=== PATIENT | female | born 1960 | race Two or more races ===

== ENCOUNTER → 2023-09-10 | Outpatient (CLI) | payer MEDICARE, MEDICAID ==
[~2023-09-10] MED LIST: COLA100C5 PO; FERR325T3 PO; LIDO30CR18 TOP; METO25TA4 PO; ONDA-84 PO; OXYC-517 PO; PANT40TA29 PO; PROC10TA5 PO
== END ==
LOC: M ONCM 07:33
PROVIDERS: ATTEND Dietitian, Registered
DX: C56.3 Malignant neoplasm of bilateral ovaries (principal); Z71.3 Dietary counseling and surveillance; Z92.21 Personal history of antineoplastic chemotherapy; Z68.1 Body mass index [BMI] 19.9 or less, adult

== ENCOUNTER → 2023-10-01 | Outpatient (CLI) | payer MEDICARE, MEDICAID ==
[~2023-10-01] VITALS: Ht 154.9 cm; Wt 37.1 kg
[~2023-10-01] MED LIST changes: +ATIV1TAB10 PO; +DEXA4TA PO; +SENN-186 PO; +ZYRTTAB8 PO
[2023-10-01 10:21] VITALS: BP 186/84; O2SAT 98
== END ==
LOC: M PAL 10:08
PROVIDERS: ATTEND Nurse Practitioner Adult Health
DX: G89.3 Neoplasm related pain (acute) (chronic) (principal); R10.13 Epigastric pain; R10.30 Lower abdominal pain, unspecified; R91.8 Other nonspecific abnormal finding of lung field; K21.9 Gastro-esophageal reflux disease without esophagitis; H00.026 Hordeolum internum left eye, unspecified eyelid; R64 Cachexia; R10.11 Right upper quadrant pain; R59.0 Localized enlarged lymph nodes; C56.3 Malignant neoplasm of bilateral ovaries; C78.6 Secondary malignant neoplasm of retroperitoneum and peritoneum; R18.0 Malignant ascites; R63.0 Anorexia; K59.00 Constipation, unspecified; Z51.5 Encounter for palliative care; F17.210 Nicotine dependence, cigarettes, uncomplicated; Z66 Do not resuscitate; Z79.52 Long term (current) use of systemic steroids; Z79.891 Long term (current) use of opiate analgesic; Z79.899 Other long term (current) drug therapy; Z80.0 Family history of malignant neoplasm of digestive organs; Z80.3 Family history of malignant neoplasm of breast; Z80.8 Family history of malignant neoplasm of other organs or systems; Z88.0 Allergy status to penicillin; Z88.1 Allergy status to other antibiotic agents; Z90.49 Acquired absence of other specified parts of digestive tract; Z90.710 Acquired absence of both cervix and uterus; Z90.722 Acquired absence of ovaries, bilateral; Z90.79 Acquired absence of other genital organ(s); Z92.21 Personal history of antineoplastic chemotherapy

== ENCOUNTER → 2023-10-15 | Outpatient (CLI) | payer MEDICARE, MEDICAID ==
[~2023-10-15] VITALS: Ht 154.9 cm; Wt 37.5 kg
[~2023-10-15] MED LIST changes: +CETI10CA2 PO
[2023-10-15 15:10] VITALS: BP 179/82; O2SAT 98
== END ==
LOC: M PAL 14:54
PROVIDERS: ATTEND Nurse Practitioner Adult Health
DX: G89.3 Neoplasm related pain (acute) (chronic) (principal); R10.13 Epigastric pain; R10.30 Lower abdominal pain, unspecified; R10.11 Right upper quadrant pain; R91.8 Other nonspecific abnormal finding of lung field; K21.9 Gastro-esophageal reflux disease without esophagitis; J43.9 Emphysema, unspecified; R64 Cachexia; R59.0 Localized enlarged lymph nodes; R91.1 Solitary pulmonary nodule; C56.3 Malignant neoplasm of bilateral ovaries; C78.6 Secondary malignant neoplasm of retroperitoneum and peritoneum; R18.0 Malignant ascites; R63.0 Anorexia; K59.00 Constipation, unspecified; Z51.5 Encounter for palliative care; F17.210 Nicotine dependence, cigarettes, uncomplicated; Z66 Do not resuscitate; Z79.52 Long term (current) use of systemic steroids; Z79.891 Long term (current) use of opiate analgesic; Z79.899 Other long term (current) drug therapy; Z80.0 Family history of malignant neoplasm of digestive organs; Z80.3 Family history of malignant neoplasm of breast; Z80.8 Family history of malignant neoplasm of other organs or systems; Z88.0 Allergy status to penicillin; Z88.1 Allergy status to other antibiotic agents; Z90.49 Acquired absence of other specified parts of digestive tract; Z90.710 Acquired absence of both cervix and uterus; Z90.722 Acquired absence of ovaries, bilateral; Z90.79 Acquired absence of other genital organ(s); Z92.21 Personal history of antineoplastic chemotherapy

== ENCOUNTER → 2023-10-18 | Outpatient (CLI) | payer MEDICARE, MEDICAID | LOC: M RAD 13:51 | PROVIDERS: ATTEND Internal Medicine Pulmonary Disease | DX: R91.8 Other nonspecific abnormal finding of lung field (principal); R18.8 Other ascites ==

== ENCOUNTER → 2023-11-14 | Outpatient (CLI) | payer MEDICARE, MEDICAID ==
[~2023-11-14] MED LIST changes: +GASTROGRAFIN SOLUTION 30ML As Ordered ONE; +ISOVUE-370 76% 100ML VIAL As Ordered ONE
== END ==
LOC: M RAD 08:21
PROVIDERS: ATTEND Internal Medicine Medical Oncology
DX: C56.9 Malignant neoplasm of unspecified ovary (principal); R18.8 Other ascites; K57.30 Diverticulosis of large intestine without perforation or abscess without bleeding
CPT/HCPCS: 74177; Q9963; Q9967

== ENCOUNTER → 2023-11-20 | Outpatient (CLI) | payer MEDICARE, MEDICAID ==
[~2023-11-20] VITALS: Ht 154.9 cm; Wt 37.6 kg
[~2023-11-20] MED LIST changes: -GASTROGRAFIN SOLUTION 30ML As Ordered ONE; -ISOVUE-370 76% 100ML VIAL As Ordered ONE; +VARE0.5T PO; +VARE1TAB2 PO
[2023-11-20 09:48] VITALS: BP 176/90; O2SAT 97
== END ==
LOC: M PAL 09:20
PROVIDERS: ATTEND Nurse Practitioner Adult Health
DX: G89.3 Neoplasm related pain (acute) (chronic) (principal); K21.9 Gastro-esophageal reflux disease without esophagitis; K59.00 Constipation, unspecified; R10.11 Right upper quadrant pain; R10.30 Lower abdominal pain, unspecified; R63.0 Anorexia; J43.9 Emphysema, unspecified; R64 Cachexia; R59.0 Localized enlarged lymph nodes; R91.1 Solitary pulmonary nodule; C56.3 Malignant neoplasm of bilateral ovaries; C78.6 Secondary malignant neoplasm of retroperitoneum and peritoneum; Z51.5 Encounter for palliative care; F17.210 Nicotine dependence, cigarettes, uncomplicated; Z66 Do not resuscitate; Z71.6 Tobacco abuse counseling; Z79.52 Long term (current) use of systemic steroids; Z79.891 Long term (current) use of opiate analgesic; Z79.899 Other long term (current) drug therapy; Z80.0 Family history of malignant neoplasm of digestive organs; Z80.3 Family history of malignant neoplasm of breast; Z80.8 Family history of malignant neoplasm of other organs or systems; Z88.0 Allergy status to penicillin; Z88.1 Allergy status to other antibiotic agents; Z90.49 Acquired absence of other specified parts of digestive tract; Z90.710 Acquired absence of both cervix and uterus; Z90.722 Acquired absence of ovaries, bilateral; Z90.79 Acquired absence of other genital organ(s); Z92.21 Personal history of antineoplastic chemotherapy

== ENCOUNTER → 2024-01-01 | Outpatient (CLI) | payer MEDICARE, MEDICAID ==
[~2024-01-01] VITALS: Ht 154.9 cm; Wt 39.7 kg
[~2024-01-01] MED LIST changes: +CIPR3OPO OP; +REGL5TAB2 PO
[2024-01-01 09:30] VITALS: BP 151/79; O2SAT 98
== END ==
LOC: M PAL 09:20
PROVIDERS: ATTEND Nurse Practitioner Adult Health
DX: G89.3 Neoplasm related pain (acute) (chronic) (principal); K21.9 Gastro-esophageal reflux disease without esophagitis; K59.00 Constipation, unspecified; R10.11 Right upper quadrant pain; R10.30 Lower abdominal pain, unspecified; R63.0 Anorexia; J43.9 Emphysema, unspecified; R64 Cachexia; R59.0 Localized enlarged lymph nodes; R91.1 Solitary pulmonary nodule; C56.3 Malignant neoplasm of bilateral ovaries; C78.6 Secondary malignant neoplasm of retroperitoneum and peritoneum; H00.013 Hordeolum externum right eye, unspecified eyelid; H00.016 Hordeolum externum left eye, unspecified eyelid; Z51.5 Encounter for palliative care; F17.210 Nicotine dependence, cigarettes, uncomplicated; Z60.2 Problems related to living alone; Z66 Do not resuscitate; Z71.6 Tobacco abuse counseling; Z72.89 Other problems related to lifestyle; Z79.52 Long term (current) use of systemic steroids; Z79.891 Long term (current) use of opiate analgesic; Z79.899 Other long term (current) drug therapy; Z80.0 Family history of malignant neoplasm of digestive organs; Z80.3 Family history of malignant neoplasm of breast; Z80.8 Family history of malignant neoplasm of other organs or systems; Z88.0 Allergy status to penicillin; Z88.1 Allergy status to other antibiotic agents; Z90.49 Acquired absence of other specified parts of digestive tract; Z90.710 Acquired absence of both cervix and uterus; Z90.722 Acquired absence of ovaries, bilateral; Z90.79 Acquired absence of other genital organ(s); Z92.21 Personal history of antineoplastic chemotherapy

== ENCOUNTER → 2024-01-07 | Outpatient (CLI) | payer MEDICAID, MEDICARE ==
[~2024-01-07] MED LIST changes: +GASTROGRAFIN SOLUTION 30ML ONE; +ISOVUE-370 76% 100ML VIAL ONE
== END ==
LOC: M PLAIMG 11:37
PROVIDERS: ATTEND Internal Medicine Hematology & Oncology
DX: C56.9 Malignant neoplasm of unspecified ovary (principal); N28.1 Cyst of kidney, acquired; K57.30 Diverticulosis of large intestine without perforation or abscess without bleeding; J43.9 Emphysema, unspecified; R91.8 Other nonspecific abnormal finding of lung field
CPT/HCPCS: 71260; 74177; Q9963; Q9967

== ENCOUNTER → 2024-02-05 | Outpatient (CLI) | payer MEDICARE, MEDICAID ==
[~2024-02-05] VITALS: Ht 154.9 cm; Wt 40.9 kg
[~2024-02-05] MED LIST changes: -GASTROGRAFIN SOLUTION 30ML ONE; -ISOVUE-370 76% 100ML VIAL ONE; +NIRA200T PO
[2024-02-05 08:43] VITALS: BP 178/82; O2SAT 99
== END ==
LOC: M PAL 08:29
PROVIDERS: ATTEND Nurse Practitioner Adult Health
DX: C56.3 Malignant neoplasm of bilateral ovaries (principal); C78.6 Secondary malignant neoplasm of retroperitoneum and peritoneum; G89.3 Neoplasm related pain (acute) (chronic); K21.9 Gastro-esophageal reflux disease without esophagitis; K59.00 Constipation, unspecified; R10.11 Right upper quadrant pain; R10.30 Lower abdominal pain, unspecified; R63.0 Anorexia; J43.9 Emphysema, unspecified; R64 Cachexia; R59.0 Localized enlarged lymph nodes; R91.1 Solitary pulmonary nodule; H00.013 Hordeolum externum right eye, unspecified eyelid; H00.016 Hordeolum externum left eye, unspecified eyelid; F41.9 Anxiety disorder, unspecified; R06.02 Shortness of breath; Z51.5 Encounter for palliative care; F17.210 Nicotine dependence, cigarettes, uncomplicated; Z60.2 Problems related to living alone; Z66 Do not resuscitate; Z71.6 Tobacco abuse counseling; Z72.89 Other problems related to lifestyle; Z79.52 Long term (current) use of systemic steroids; Z79.891 Long term (current) use of opiate analgesic; Z79.899 Other long term (current) drug therapy; Z80.0 Family history of malignant neoplasm of digestive organs; Z80.3 Family history of malignant neoplasm of breast; Z80.8 Family history of malignant neoplasm of other organs or systems; Z88.0 Allergy status to penicillin; Z88.1 Allergy status to other antibiotic agents; Z90.49 Acquired absence of other specified parts of digestive tract; Z90.710 Acquired absence of both cervix and uterus; Z90.722 Acquired absence of ovaries, bilateral; Z90.79 Acquired absence of other genital organ(s); Z92.21 Personal history of antineoplastic chemotherapy